=== PATIENT | female | born 1940 | race Caucasian/White ===

== ENCOUNTER 2016-09-09 14:40 | Emergency (ER) | payer OTHER ==
--- NOTE | 2016-09-09 14:52 | PDOC ---
History of Present Illness - General History Source: Patient Exam Limitations: No Limitations - History of Present Illness Initial Comments: 09/09/16 15:17 The patient is a 75 year old female, with a significant past medical history of diverticulitis, who presents to the emergency department with complaints of a headache and neck and shoulder stiffness status post a fall while playing tennis yesterday. The patient reports that when she was playing tennis yesterday she lost her footing and fell, hitting the posterior left side of her head. She denies any loss of consciousness. The patient reports that this morning when she woke up she felt slightly nauseous and had a diffuse headache. She notes that her nausea has since subsided but her headache is still present. She denies any change in her vision and LOC, fever, chills, cough, She denies chest pain, abdominal pain, palpitation, shortness of breath, lightheadedness, and dizziness. She denies vomit, diarrhea and constipation. Patient denies being on any blood thinners. The patient denies any other bodily pain or injury. Allergies: Metronidazole Past surgical history: Appendectomy Social history:She denies alcohol or drug use <Bernie Pryor - Last Filed: 09/09/16 15:17> <Solo Rader - Last Filed: 09/09/16 16:26> - General Chief Complaint: Injury Stated Complaint: fall Time Seen by Provider: 09/09/16 14:44 Past History <Bernie Pryor - Last Filed: 09/09/16 15:17> <Solo Rader - Last Filed: 09/09/16 16:26> - Past Medical History Allergies/Adverse Reactions: Allergies Allergy/AdvReac Type Severity Reaction Status Date / Time metronidazole [From Flagyl] Allergy Verified 09/09/16 14:45 Home Medications: Ambulatory Orders Multivitamins [Tab-A-Vit -] 1 tab PO DAILY 09/09/16 Review of Systems - Review of Systems Able to Perform ROS?: Yes Comments:: 09/09/16 15:17 CONSTITUTIONAL: Absent: fever, no chills, no fatigue EYES: Absent: visual changes ENT: Absent: ear pain, no sore throat CARDIOVASCULAR: Absent: chest pain, no palpitations RESPIRATORY: Absent: cough, no SOB GI:+Nausea Absent: abdominal pain, no vomiting, no constipation, no diarrhea GENITOURINARY: Absent: dysuria, no frequency, no hematuria MUSKULOSKELETAL: +Neck pain, +Shoulder pain Absent: back pain SKIN: Absent: rash NEURO: +headache Absent: <Bernie Pryor - Last Filed: 09/09/16 15:17> *Physical Exam - Vital Signs Last Vital Signs Temp Pulse Resp BP Pulse Ox 98.5 F 65 18 132/78 98 09/09/16 14:40 09/09/16 14:40 09/09/16 14:40 09/09/16 14:40 09/09/16 14:40 - Physical Exam Comments: 09/09/16 15:18 GENERAL: Well developed, well nourished. Awake and alert. No acute distress. HEENT: The funduscopic exam was well visualized and showed normal fundi with sharp margins and venous central pulsations central Normocephalic, atraumatic. PERRLA, EOMI. No conjunctival pallor. Sclera are non- icteric. Moist mucous membranes. Oropharynx is clear. NECK: Supple. Full ROM. No JVD. Carotid pulses 2+ and symmetric, without bruits. No thyromegaly. No lymphadenopathy. CARDIOVASCULAR: Regular rate and rhythm. No murmurs, rubs, or gallops. Distal pulses are 2+ and symmetric. PULMONARY: No evidence of respiratory distress. Lungs clear to auscultation bilaterally. No wheezing, rales or rhonchi. ABDOMINAL: Soft. Non-tender. Non-distended. No rebound or guarding. No organomegaly. Normoactive bowel sounds. NECK: +Mild spasms of the right lateral neck muscles and the trapezius muscle No point tenderness over the vertebral bodies, no deformity. MUSCULOSKELETAL Normal range of motion at all joints. No CVA tenderness. EXTREMITIES: No cyanosis. No clubbing. No edema. No calf tenderness. SKIN: Warm and dry. Normal capillary refill. No rashes. No jaundice. NEUROLOGICAL: Alert, awake, appropriate. Cranial nerves 2-12 intact. No deficits to light touch and temperature in face, upper extremities and lower extremities. No motor deficits in the in face, upper extremities and lower extremities. Normoreflexic in the upper and lower extremities. Normal speech. . Gait is normal without ataxia. PSYCHIATRIC: Cooperative. Good eye contact. Appropriate mood and affect. <Bernie Pryor - Last Filed: 09/09/16 15:17> ED Treatment Course - Medications Given in the ED: ED Medications Discontinued Medications Generic Name Dose Route Start Last Admin Trade Name Louann PRN Reason Stop Dose Admin Acetaminophen 975 mg 09/09/16 15:08 09/09/16 15:13 Tylenol - PO 09/09/16 15:09 Not Given ONCE ONE Acetaminophen 650 mg 09/09/16 15:12 09/09/16 15:13 Tylenol - PO 09/09/16 15:13 650 mg NOW ONE Administration <Bernie Pryor - Last Filed: 09/09/16 15:17> Medical Decision Making - Medical Decision Making 09/09/16 16:26 CT of the head and neck are negative. Headache is improved with medication. Patient remains stable with intact neurological exam and no unsteadiness of gait. Discharge fully ambulatory and in no significant pain or other distress with friend to follow-up <Solo Rader - Last Filed: 09/09/16 16:26> *DC/Admit/Observation/Transfer - Attestations Scribe Attestion: 09/09/16 15:18 Documentation prepared by ANDREA Mcmahon, acting as certified medical records coder for Solo Rader MD. <Bernie Pryor - Last Filed: 09/09/16 15:17> - Discharge Dispostion Admit: No <Solo Rader - Last Filed: 09/09/16 16:26> Diagnosis at time of Disposition: Head injury Qualifiers: Encounter type: initial encounter Qualified Code(s): S09.90XA - Unspecified injury of head, initial encounter - Discharge Dispostion Disposition: HOME Condition at time of disposition: Improved - Referrals Referrals: Mark Catalan MD [Staff Physician] - - Patient Instructions Printed Discharge Instructions: DI for Closed Head Injury, DI for Cervical Muscle Strain Additional Instructions: Rest, Motrin or Advil, avoid excessive visual stimulation, light diet. If symptoms persist, see primary physician, neurologist, or orthopedist for further evaluation and treatment
[2016-09-09] MEDS ORDERED: ACETAMINOPHEN 325 MG TABLET (FP) PO ONE ×2 (15:08→15:12)
[2016-09-09] MEDS ORDERED: ACETAMINOPHEN 325 MG TABLET (FP) ONE (15:10)
[2016-09-09 15:11] VITALS: BP 132/78; PULSE 65; TEMP 98.5; BMI 25.2
[2016-09-09] MEDS ORDERED: IBUPROFEN 600 MG TABLET (FP) PO ONE ×2 (16:24→16:32)
== END 2016-09-09 16:42 | disposition home or self-care (01) ==
LOC: FER 14:40
DX: S09.90XA Unspecified injury of head, initial encounter (principal); W18.39XA Other fall on same level, initial encounter; Y93.73 Activity, racquet and hand sports; Y92.312 Tennis court as the place of occurrence of the external cause
CPT/HCPCS: 70450-TC; 72125-TC; 99282-25

== ENCOUNTER 2018-05-08 14:08 | Emergency (ER) | payer OTHER ==
[2018-05-08 14:13] VITALS: BP 142/72; PULSE 85; TEMP 98; BMI 25.2
--- NOTE | 2018-05-08 14:14 | PDOC ---
Rapid Medical Evaluation Chief Complaint: Nasal Bleeding Medical Evaluation: Allergies Allergy/AdvReac Type Severity Reaction Status Date / Time metronidazole [From Flagyl] Allergy Verified 05/08/18 14:11 05/08/18 14:11 I have performed a brief in-person evaluation of this patient. The patient presents with a chief complaint of: epistaxis x 1 hour, Pertinent physical exam findings: + bleeding from right side worst than left I have ordered the following: CBC, CMP, PT/INR The patient will proceed to the ED for further evaluation. 05/08/18 14:13 Discharge Disposition - Diagnosis Epistaxis - Referrals - Patient Instructions - Post Discharge Activity
--- NOTE | 2018-05-08 15:09 | PDOC ---
History of Present Illness - General Chief Complaint: Nasal Bleeding Stated Complaint: NOSE BLEED Time Seen by Provider: 05/08/18 14:26 History Source: Patient Exam Limitations: No Limitations - History of Present Illness Initial Comments: 05/08/18 15:03 77 yo female pmh of past nose bleeds not on AC presents to the ED with nose bleed for 1 hour. Pt states past nose bleeds have not been this bad, pt called 911 due to excessive blood loss, dizziness and light headedness. Pt admits to it being very dry in her home. denies medical hx of liver disease, denies LOC, changes in vision, profound weakness, CP, SOB, abdominal pain, F/C/N/V. Past History - Past Medical History Allergies/Adverse Reactions: Allergies Allergy/AdvReac Type Severity Reaction Status Date / Time metronidazole [From Flagyl] Allergy Verified 05/08/18 14:11 Home Medications: Ambulatory Orders Multivitamins [Tab-A-Vit -] 1 tab PO DAILY 09/09/16 COPD: No GI Disorders: Yes (DIVERTICULITIS) - Surgical History Abdominal Surgery: Yes Appendectomy: Yes - Immunization History Immunization Up to Date: Yes - Suicide/Smoking/Psychosocial Hx Smoking History: Never smoked 'Breaking Loose' booklet given: 09/09/16 Hx Alcohol Use: No Drug/Substance Use Hx: No Review of Systems - Review of Systems Constitutional: Yes: Weakness. No: Chills, Fever HEENTM: Yes: Other (nose bleed 1 hour) Respiratory: No: Shortness of Breath Cardiac (ROS): No: Chest Pain ABD/GI: No: Constipated, Diarrhea, Nausea, Vomiting : No: Burning, Dysuria, Discharge Musculoskeletal: No: Back Pain Neurological: Yes: Dizziness. No: Headache, Numbness, Paresthesia Hematologic/Lymphatic: Yes: Other (Nose bleed 1 hour with associated lightheadedness) *Physical Exam - Vital Signs Last Vital Signs Temp Pulse Resp BP Pulse Ox 98.0 F 85 18 142/72 98 05/08/18 14:11 05/08/18 14:11 05/08/18 14:11 05/08/18 14:11 05/08/18 14:11 - Physical Exam General Appearance: Yes: Nourished, Appropriately Dressed, Apparent Distress ( hemostasis achieved but pt has dry blood on hands and face ) HEENT: positive: EOMI, MAURILIO, Hearing Grossly Normal, Other (NCAT) Respiratory/Chest: positive: Normal Breath Sounds. negative: Accessory Muscle Use, Rapid RR, Decreased Breath Sounds, Crackles, Rales, Rhonchi, Stridor Cardiovascular: positive: Regular Rhythm, Regular Rate, S1, S2. negative: Edema , JVD, Murmur Vascular Pulses: Dorsalis-Pedis (R): 4+, Doralis-Pedis (L): 4+ Gastrointestinal/Abdominal: positive: Flat, Soft. negative: Pulsatile Mass, Distended, Guarding, Rebound, Tenderness Extremity: positive: Normal Capillary Refill, Normal Inspection Integumentary: positive: Normal Color, Dry, Warm. negative: Cyanotic, Pale, Cold Neurologic: positive: Fully Oriented, Alert, Normal Mood/Affect, Normal Response Moderate Sedation - Procedure Monitoring Vital Signs: Procedure Monitoring Vital Signs Temperature 98.0 F 05/08/18 14:11 Pulse Rate 85 05/08/18 14:11 Respiratory Rate 18 05/08/18 14:11 Blood Pressure 142/72 05/08/18 14:11 O2 Sat by Pulse Oximetry (%) 98 05/08/18 14:11 ED Treatment Course - LABORATORY CBC & Chemistry Diagram: 05/08/18 14:57 05/08/18 14:57 Medical Decision Making - Medical Decision Making 77 yo female presents to the ED after having a nose bleed for 1 hour with associated dizziness and weakness. Admits to house being very dry. Nose bleed stops while in the EDprior to evaluation. Pt sitting up in beed, NAD , AOX3 Vitals WNL CBC shows normal H/H PT/PTT normal CMP unremarkable When pt attempts to go to the bathroom and leans over, the bleed starts again. ice is applied to back of the neck, pressure is held on the nose gauze soaked in saline wit 1cc of lido with epi applied to bilateral nares for 2 min, bleed stops Rhino rocket 4.5 cm applied to left nostril with 1cc of lido with epi and soaked in NS Pt given the number of ENT Dr. Guadalupe, calls while in the ED and told she can come directly to his office for likely cauterization Pt given appropriate DC instructions and proceeds to ENT office for definitive care *DC/Admit/Observation/Transfer Diagnosis at time of Disposition: Epistaxis - Discharge Dispostion Disposition: HOME Condition at time of disposition: Good Decision to Admit order: No - Referrals Referrals: Ekaterina Rojo MD [Primary Care Provider] - Azam Guadalupe MD [Staff Physician] - - Patient Instructions Printed Discharge Instructions: DI for Nosebleed Additional Instructions: Go to Dr. Pereira office right away. He is expecting you. Return to the ER for new or concerning or continued bleeding. Thank you - Post Discharge Activity
[2018-05-08 15:13] LABS: BASO % 0.7 % (0-2.0); EOS % 0.4 % (0-4.5); HEMATOCRIT 42.8 % (32.4-45.2); HEMOGLOBIN 14.8 GM/dL (10.7-15.3); LYMPH % 14.6 % (8-40); MCH 32.5 pg (25.7-33.7); MCHC 34.6 g/dl (32.0-36.0); MEAN CELL VOLUME 93.8 fl (80-96); MEAN PLT VOLUME 8.5 fl (7.5-11.1); MONO % 5.3 % (3.8-10.2); PLATELET COUNT 242 K/MM3 (134-434); RBC 4.56 M/mm3 (3.60-5.2); RDW 12.9 % (11.6-15.6)
[2018-05-08 15:39] LABS: ALBUMIN 3.9 g/dl (3.4-5.0); ALK PHOS 111 U/L (45-117); ANION GAP 7 MMOL/L (8-16); BILIRUBIN,TOTAL 0.4 mg/dL (0.2-1); BLOOD UREA NITROGEN 17 mg/dL (7-18); CALCIUM 8.5 mg/dL (8.5-10.1); CHLORIDE 104 mmol/L (98-107); CO2 26 mmol/L (21-32); CREATININE 0.7 mg/dL (0.55-1.3); GLUCOSE,RANDOM 104 mg/dL (74-106); SGOT/AST 21 U/L (15-37); SGPT/ALT 22 U/L (13-61); SODIUM 138 mmol/L (136-145); TOT PROT 7.1 g/dl (6.4-8.2)
[2018-05-08 15:40] LABS: INR 1.01 (0.83-1.09); PROTHROMBIN TIME (PATIENT) 11.9 SEC (9.7-13.0)
[2018-05-08] MEDS ORDERED: LIDOCAINE HCL 1%, 10 MG/ML (50 mL VIAL) NR ONE (16:30)
[2018-05-08] MEDS ORDERED: OXYMETAZOLINE 0.05% NASAL SOLUTION 15 ML BOTTLE NS ONE (16:30)
[2018-05-08] MEDS ORDERED: LIDOCAINE 1%/EPI 1:100000 (20 ML MULTI DOSE VIAL) ONE (16:32)
--- NOTE | 2018-05-08 17:05 | PDOC ---
Attending Attestation - Resident Resident Name: JinChidi - ED Attending Attestation I have performed the following: I have examined & evaluated the patient, The case was reviewed & discussed with the resident, I agree w/resident's findings & plan, Exceptions are as noted - HPI HPI: 05/08/18 17:06 77yo female with L anterior nose bleed. Denies trauma or picking her nose. States she got up off the couch to use the restroom and her nose just started to bleed. Pt with brb per L nare in the ED. No lightheaded or dizziness. No cp/ sob. No posterior bleeding. - Physicial Exam PE: 05/08/18 17:07 Gen: aaox3, nad heent: PERRL, EOMI, no bleeding down posterior pharynx, L nare with bleeding- bright red, unable to visualize site of bleeding, no bleeding R nare neck: supple heart: +s1s2 reg lung: cta b/l abd: soft, nt/nd +bs ext: no c/c/e, ambulates with a steady gait - Medical Decision Making 05/08/18 17:04 I, Dr. Kimberly Fernandez, DO, attest that this document has been prepared under my direction and personally reviewed by me in its entirety. I further attest, that it accurately reflects all work, treatment, procedures and medical decision -making performed by me. 05/08/18 17:08 77yo female with L anterior epistaxis -pt was not initially bleeding upon arrival in ED, currently is bleeding -pt packed with rapid rhino to L nare -no active bleeding -pt called Dr. Pereira who will see the patient at this time -on repeat eval pt still without bleeding to either nare, no posterior pharynx bleeding -stable for dc to ENT office 05/08/18 17:11 labs reviewed plts stable, inr stable
[2018-05-08] MEDS ORDERED: LIDOCAINE 1%/EPI 1:100000 (50 ML MULTI DOSE VIAL) NR ONE (17:10)
== END 2018-05-08 17:22 | disposition home or self-care (01) ==
LOC: JER 14:08
DX: R04.0 Epistaxis (principal); Z87.19 Personal history of other diseases of the digestive system
CPT/HCPCS: 36415; 80053; 85025; 85610; 86850; 86900; 86901; 99282-25

== ENCOUNTER 2019-01-04 09:46 | Emergency (ER) | payer OTHER ==
[2019-01-04 10:10] VITALS: BP 140/69; PULSE 68; TEMP 98.5; BMI 24.8
--- NOTE | 2019-01-04 10:19 | PDOC ---
History of Present Illness - General Chief Complaint: Headache Stated Complaint: HEADACHE Time Seen by Provider: 01/04/19 10:12 - History of Present Illness Initial Comments: Ms. Hooks is a 78 y/o female with PMH significant for diverticulitis and anxiety, presenting today with headache. Reports that it started yesterday. Describes the pain as bitemporal without any radiation. Reports that she has headaches occasionally. Denies fever, LOC, vision changes. Denies chest pain/ shortness of breath. Denies dysuria/hematuria. Denies abdominal pain. SocHx: lives alone. denies falls. Past History - Past Medical History Allergies/Adverse Reactions: Allergies Allergy/AdvReac Type Severity Reaction Status Date / Time metronidazole [From Flagyl] Allergy Verified 01/04/19 09:48 Home Medications: Ambulatory Orders Multivitamins [Tab-A-Vit -] 1 tab PO DAILY 09/09/16 Alprazolam [Xanax] 0.25 mg PO DAILY PRN 01/04/19 Atorvastatin Ca [Lipitor] 10 mg PO HS 01/04/19 Buspirone HCl [Buspar -] 10 mg PO DAILY 01/04/19 Escitalopram Oxalate [Lexapro -] 5 mg PO DAILY 01/04/19 Meloxicam 15 mg PO DAILY PRN 01/04/19 Metoprolol Succinate [Toprol Xl] 25 mg PO DAILY 01/04/19 COPD: No GI Disorders: Yes (DIVERTICULITIS) HTN: Yes Hypercholesterolemia: Yes Psychiatric Problems: Yes - Surgical History Abdominal Surgery: Yes Appendectomy: Yes (AGE 5) - Immunization History Immunization Up to Date: Yes - Psycho Social/Smoking Cessation Hx Smoking History: Never smoked 'Breaking Loose' booklet given: 09/09/16 Hx Alcohol Use: No Drug/Substance Use Hx: No Review of Systems - Review of Systems Comments:: GENERAL/CONSTITUTIONAL: No fever or chills. No weakness._ HEAD, EYES, EARS, NOSE AND THROAT: No change in vision. No change in hearing. No sore throat._ CARDIOVASCULAR: No chest pain or shortness of breath_ RESPIRATORY: Denies cough, hemoptysis_ GASTROINTESTINAL: No nausea, vomiting, diarrhea or constipation._ GENITOURINARY: No dysuria, frequency, or change in urination._ MUSCULOSKELETAL: No joint or muscle swelling or pain. No neck or back pain._ SKIN: No rash_ NEUROLOGIC: Reports headache. No vertigo, loss of consciousness, or change in strength/sensation._ ENDOCRINE: No increased thirst. No abnormal weight change_ HEMATOLOGIC/LYMPHATIC: No anemia, easy bleeding, or history of blood clots._ ALLERGIC/IMMUNOLOGIC: No hives or skin allergy._ *Physical Exam - Vital Signs Last Vital Signs Temp Pulse Resp BP Pulse Ox 98.5 F 68 15 140/69 100 01/04/19 09:47 01/04/19 09:47 01/04/19 09:47 01/04/19 09:47 01/04/19 09:47 - Physical Exam Comments: GENERAL: Awake, alert, and oriented to person and place, in no acute distress. Mild memory loss. HEAD: No signs of trauma, normocephalic, atraumatic _ EYES: PERRLA, EOMI, sclera anicteric, conjunctiva clear_ ENT: Hearing grossly normal, nares patent, oropharynx clear without exudates. No uvular deviation. Moist mucosa_ NECK: Normal ROM, supple, no lymphadenopathy, JVD, or masses_ LUNGS: No distress, speaks in full sentences, clear to auscultation bilaterally _ HEART: Regular rate and rhythm, normal S1 and S2, no murmurs appreciated, peripheral pulses normal and equal bilaterally._ ABDOMEN: Soft, nontender, normoactive bowel sounds. No guarding, no rebound. No masses_ EXTREMITIES: Normal inspection, Normal range of motion, no edema. No clubbing or cyanosis_ NEUROLOGICAL: Cranial nerves II through XII grossly intact. Normal speech, normal gait, no focal sensorimotor deficits. Cerebellar testing negative. No ataxia. 5/5 strength/sensation bilateral upper/lower extremities. SKIN: Warm, Dry, normal turgor, no rashes or lesions noted_ ED Treatment Course - LABORATORY CBC & Chemistry Diagram: 01/04/19 10:45 01/04/19 10:45 Medical Decision Making - Medical Decision Making 78F presenting with bitemporal headache. No other symptoms. DDx includes tension headache vs other acute intracranial pathology. -CBC, CMP -CT head -UA, UCx 01/04/19 12:25 CT head shows no acute intracranial pathology and no interval changes from 2017. Labs reviewed and wnl. UA does not show signs of UTI. Pt reassessed. pain at top of head as improved, but continues to have bitemporal pain after given IV tylenol and fluids. -Toradol IV 30 mg 01/04/19 13:15 Pt reassessed. Pain has moderately improved. -Reglan IV 10 mg 01/04/19 13:36 D/w son (Kishan Hooks) who states that patient was diagnosed with vascular dementia and is followed by Dr. Zaragoza at [facility]. Reports that she has been having headaches with increasing frequency. Son states that he has been spending more time with patient at her home. D/w [facility] motel front desk clerk physician, who states that she was noted to have mild vascular dementia at her last visit and is being followed by neuropsych at [facility]. Given that she has neuro, neuropsych, primary care follow up and social/ familial support, plan to d/c patient home to f/u PCP and neurology. Discharge - Discharge Information Problems reviewed: Yes Clinical Impression/Diagnosis: Headache Qualifiers: Headache type: unspecified Headache chronicity pattern: unspecified pattern Intractability: not intractable Qualified Code(s): R51 - Headache Condition: Good Disposition: HOME - Admission No - Follow up/Referral Referrals: Ekaterina Rojo MD [Primary Care Provider] - Steve Zaragoza [Non Staff, Medical] - - Patient Discharge Instructions Additional Instructions: Please take Advil as needed for your headache. Please make a follow up appointment with your primary care physician and a neurologist (contact info provided here). If you experience any new, worsening, or concerning symptoms, including severe headache, fever, chills, neck pain, changes in vision, lethargy, or any other concerns, please return to the emergency department. - Post Discharge Activity
[2019-01-04] MEDS ORDERED: SODIUM CHLORIDE 0.9% 500 ML INFUS.BAG IV ONE (10:58)
[2019-01-04] MEDS ORDERED: ACETAMINOPHEN 1000 MG/100 ML VIAL (NON FORMULARY) IVPB ONE (10:58)
[2019-01-04 11:07] LABS: BASO % 0.5 % (0-2.0); EOS % 0.9 % (0-4.5); HEMATOCRIT 42.9 % (32.4-45.2); HEMOGLOBIN 14.4 GM/dl (10.7-15.3); LYMPH % 16.8 % (8-40); MCH 31.7 pg (25.7-33.7); MCHC 33.5 g/dl (32.0-36.0); MEAN CELL VOLUME 94.5 fl (80-96); MEAN PLT VOLUME 8.7 fl (7.5-11.1); MONO % 6.1 % (3.8-10.2); NEUT % 75.7 % (42.8-82.8); PLATELET COUNT 284 K/MM3 (134-434); RBC 4.54 M/mm3 (3.60-5.2); RDW 12.6 % (11.6-15.6); WHITE BLOOD COUNT 7.5 K/mm3 (4.0-10.8)
[2019-01-04] MEDS ORDERED: ACETAMINOPHEN INJECTION 100 ML IVPB ONE (11:08)
[2019-01-04 11:16] LABS: BILIRUBIN,TOTAL 0.5 mg/dl (0.2-1); CREATININE 0.7 mg/dl (0.55-1.3); POTASSIUM 4.5 mmol/L (3.5-5.1); TOT PROT 6.8 g/dl (6.4-8.2)
[2019-01-04 11:46] LABS: EPITHELIAL CELLS RARE /hpf
--- NOTE | 2019-01-04 11:55 | PDOC ---
Attending Attestation - Resident Resident Name: Karen Chilelhan - ED Attending Attestation I have performed the following: I have examined & evaluated the patient, The case was reviewed & discussed with the resident, I agree w/resident's findings & plan, Exceptions are as noted - HPI HPI: 01/04/19 11:52 78-year-old female history of anxiety here today complaining of bitemporal headaches. Patient states that she has has headaches in the past although never this bad describing a bitemporal headache which started yesterday she believes she awoke with a headache in the a.m. has been persistent since that time thinks she may have taken ibuprofen the day prior for her pain but had no relief. Previously headaches would improve with Motrin or Aleve. Denies any nausea or vomiting no associated focal weakness no photophobia no fevers chills no cough no trauma patient states that she lives alone and states overall was not feeling well so she felt like she should get checked out in the ED today. States she takes Xanax but has not taken it recently - Physicial Exam PE: 01/04/19 11:53 Awake alert no acute distress no temporal artery tenderness. Facial nerves are intact and faces are symmetric. There is no meningismus lungs are clear bilaterally heart is regular without murmurs rubs or gallops abdomen is soft and nontender extremities are warm and well-perfused. Patient does appear to have a baseline resting tremor her strength is 5 out of 5 all 4 extremities she is alert and oriented x2 and is disoriented to the year - Medical Decision Making 01/04/19 11:53 78-year-old female history of anxiety here today complaining of headache. Differential includes tension headache, anemia, lecture light abnormality, onset of viral syndrome intracranial pathology. Plan CT head basic labs IV hydration IV Tylenol given her for her pain. Patient does appear to have some remote memory impairment when asked questions about her medications and the date. however is very high functioning states she does have a Dr. Qiu that she can follow-up with as an outpatient. 01/04/19 14:[address] negative labs normal. headache improved with toradol tylenol and reglan. would like to go home. pt was seemingly with some short term memory loss in department. could not remember year, and forgetting details of conversations had in ED. called pt son with permission states she has had diagnosis of vascular dementia. is being followed by a nueropsychatrist and a nuerologist. he has been keeping closer tabs on her and will check in with her. pcp called to leave message for folloupw. [place] to home.
[2019-01-04] MEDS ORDERED: KETOROLAC TROMETHAMINE 30 MG/1 ML VIAL IVPUSH ONE (12:31)
[2019-01-04] MEDS ORDERED: KETOROLAC TROMETHAMINE 30 MG/1 ML VIAL ONE (12:35)
[2019-01-04] MEDS ORDERED: METOCLOPRAMIDE HCL INJECTION 10 MG/2 ML VIAL IVPUSH ONE (13:15)
[2019-01-04] MEDS ORDERED: METOCLOPRAMIDE HCL INJECTION 10 MG/2 ML VIAL ONE (13:21)
== END 2019-01-04 14:09 | disposition home or self-care (01) ==
LOC: FER 09:46
PROC: 3E0333Z Introduction of Anti-inflammatory into Peripheral Vein, Percutaneous Approach (ICD-10-PCS; principal; 2019-01-04)
PROC: 3E033NZ Introduction of Analgesics, Hypnotics, Sedatives into Peripheral Vein, Percutaneous Approach (ICD-10-PCS; 2019-01-04)
PROC: 3E0337Z Introduction of Electrolytic and Water Balance Substance into Peripheral Vein, Percutaneous Approach (ICD-10-PCS; 2019-01-04)
DX: R51 Headache (principal); F41.9 Anxiety disorder, unspecified; I10 Essential (primary) hypertension; E78.00 Pure hypercholesterolemia, unspecified; Z88.8 Allergy status to other drugs, medicaments and biological substances
CPT/HCPCS: 36415; 70450-TC; 80053; 81003; 81015; 85025; 87086; 99283-25; J0131

== ENCOUNTER 2019-04-25 17:38 | Emergency (ER) | payer OTHER ==
[2019-04-25 18:09] VITALS: TEMP 97.5; BMI 23.4
--- NOTE | 2019-04-25 18:10 | PDOC ---
Documentation entered by Xochitl Grajeda SCRIBE, acting as scribe for Cecilia Simmons MD. Cecilia Simmons MD: This documentation has been prepared by the theodoreibeNicci Adrianna, SCRIBE, under my direction and personally reviewed by me in its entirety. I confirm that the documentation accurately reflects all work, treatment, procedures, and medical decision making performed by me. History of Present Illness - General Chief Complaint: CVA/TIA Stated Complaint: ?STROKE Time Seen by Provider: 04/25/19 17:55 - History of Present Illness Initial Comments: The patient is a 78 year old female, with a significant PMH of TIAs (last in October), vascular dementia, HTN, HLD, anxiety, and diverticulitis, who presents to the ED for evaluation of right sided paresthesia. Son at bedside assists in providing history, as the patient is a poor historian 2/2 vascular dementia. Patient notes that she woke up in her normal state of health this morning. During the afternoon, she called her son since she felt funny, dizzy, and lightheaded. Son notes that the patient was complaining of right-sided numbness , at the right side of her face, her RUE into her fingers, and down her RLE to her toes. When the son went to see her, he notes that her right eye and cheek looked off like they were spasming. Patient notes the numbness had resolved in the ED, but endorses some right knee pain. Her only complaint in the ED is that she feels tired. Denies PAUL, fever, chills, chest pain, SOB, changes in vision, blurred vision. Allergies: Metronidazole Surgical History: appendectomy Social History: Former smoker (quit 30 years ago). No toxic habits. PCP: Dr. Rojo Convalescent Sitter: Dr. Platt Past History - Past Medical History Allergies/Adverse Reactions: Allergies Allergy/AdvReac Type Severity Reaction Status Date / Time metronidazole [From Flagyl] Allergy Unknown Verified 04/25/19 17:55 Home Medications: Ambulatory Orders Multivitamins [Tab-A-Vit -] 1 tab PO DAILY 09/09/16 Alprazolam [Xanax] 0.25 mg PO PRN PRN 01/04/19 Atorvastatin Ca [Lipitor] 10 mg PO HS 01/04/19 Meloxicam 15 mg PO PRN PRN 01/04/19 Aspirin [ASA -] 81 mg PO DAILY 04/25/19 COPD: No GI Disorders: Yes (DIVERTICULITIS) HTN: Yes Hypercholesterolemia: Yes Psychiatric Problems: Yes Other medical history: MINI STROKE, VASCULAR DEMENTIA - Surgical History Abdominal Surgery: Yes Appendectomy: Yes (AGE 5) - Immunization History Immunization Up to Date: Yes - Psycho Social/Smoking Cessation Hx Smoking History: Former smoker Have you smoked in the past 12 months: No If you are a former smoker, when did you quit?: 1980S Information on smoking cessation initiated: No 'Breaking Loose' booklet given: 09/09/16 Hx Alcohol Use: No Drug/Substance Use Hx: No Review of Systems - Review of Systems Comments:: GENERAL/CONSTITUTIONAL: +Tired. No fever or chills. No weakness. HEAD, EYES, EARS, NOSE AND THROAT: No change in vision. No ear pain or discharge. No sore throat. CARDIOVASCULAR: No chest pain or shortness of breath. RESPIRATORY: No cough, wheezing, or hemoptysis. GASTROINTESTINAL: No nausea, vomiting, diarrhea or constipation. GENITOURINARY: No dysuria, frequency, or change in urination. MUSCULOSKELETAL: +RIght knee pain. No joint or muscle swelling. No neck or back pain. SKIN: No rash NEUROLOGIC: +Poor memory 2/2 vascular dementia. +RIght sided numbness, now resolved. +DIzziness and lightheadedness, now resolved. No headache or loss of consciousness. ENDOCRINE: No increased thirst. No abnormal weight change. HEMATOLOGIC/LYMPHATIC: No anemia, easy bleeding, or history of blood clots. ALLERGIC/IMMUNOLOGIC: No hives or skin allergy. *Physical Exam - Vital Signs Last Vital Signs Temp Pulse Resp BP Pulse Ox 97.5 F L 75 20 122/67 100 04/25/19 17:39 04/25/19 17:39 04/25/19 17:39 04/25/19 17:39 04/25/19 17:39 - Physical Exam GENERAL: Awake, alert, and fully oriented, in no acute distress HEAD: No signs of trauma EYES: PERRLA, EOMI, sclera anicteric, conjunctiva clear ENT: Auricles normal inspection, hearing grossly normal, nares patent, oropharynx clear without exudates. Moist mucosa NECK: Normal ROM, supple, no lymphadenopathy, JVD, or masses LUNGS: Breath sounds equal, clear to auscultation bilaterally. No wheezes, and no crackles HEART: Regular rate and rhythm, normal S1 and S2, no murmurs, rubs or gallops ABDOMEN: Soft, nontender, normoactive bowel sounds. No guarding, no rebound. No masses EXTREMITIES: Normal range of motion, no edema. No clubbing or cyanosis. No cords, erythema, or tenderness NEUROLOGICAL: +Memory impairment (at baseline per son at bedside). Cranial nerves II through XII grossly intact. Normal speech. Motor and sensation intact SKIN: Warm, Dry, normal turgor, no rashes or lesions noted NIH Stroke Scale - Last Known Well Date/Time & Onset Date Last Known Well: 04/25/19 - Initial Evaluation Level of consciousness: Alert Ask patient the month and their age: Answers both correctly Ask patient to open & close eyes; make fist and let go: Obeys both correctly Best gaze (horizontal eye movement): Normal Visual field testing: No visual field loss Facial paresis (Show teeth/raise eyebrows/close eyes tight): Normal symmetrical movement Motor Function: Left Arm: Normal Motor Function: Right Arm: Normal (extends arm 90 (or 45) degrees for 10 seconds without drift Motor Function: Left Leg: Normal (extends leg 30 degrees for 5 seconds without drift) Motor Function: Right Leg: Normal (extends leg 30 degrees for 5 seconds without drift) Limb Ataxia: No ataxia Sensory(Use pinprick test arms,legs,trunk,face/side to side): Normal Best language (Describe picture, name items, read sentences): No Aphasia Dysarthria (read several words): Normal articulation Extinction and Inattention: No abnormality - Total Score NIH Stroke Scale Score: 0 Critical Care Time/MDM Note - Medical Decision Making Note: EXAM: CT HEAD WITHOUT IV CONTRAST FINDINGS:Small area of hyperintensity in the left frontal subcortical white matter is concerning for petechial hemorrhage. Recommend brain MRI to further characterize. Otherwise, mild diffuse parenchymal atrophy of the remaining brain with preservation of the peralta-white differentiation. There is no acute intracranial hemorrhage, mass effect or midline shift. No abnormal intra-axial or extra-axial fluid collection is seen. The periventricular white matter is unremarkable. The ventricles and basilar cisterns are maintained.The bones of the calvarium and imaged skull base demonstrate no acute abnormality. The imaged paranasal sinuses and mastoid air cells : Unremarkable. Reported By: Rich Valencia MD 04/25/2019 18:[address] results d/w patient and son at bedside. They requested [facility] for transfer. [facility] auto-accepted. 04/25/19 18:52 Case d/w Dr. Christina, [facility] neurosurgeon production support analyst, patient accepted. Requested keppra 1g IV. SBP goal <140. Discharge - Discharge Information Problems reviewed: No Clinical Impression/Diagnosis: Intraparenchymal hemorrhage of brain Condition: Guarded Disposition: TRANSFER ACUTE CARE/OTHER HOSP - Admission No - Follow up/Referral Referrals: Ekaterina Rojo MD [Primary Care Provider] - - Patient Discharge Instructions - Post Discharge Activity - Transfer to Acute Care Facility Receiving Facility Name: [facility]
[2019-04-25 18:29] LABS: BASO % 0.6 % (0-2.0); HEMATOCRIT 40.6 % (32.4-45.2); HEMOGLOBIN 13.2 GM/dl (10.7-15.3); LYMPH % 24.8 % (8-40); MCH 30.7 pg (25.7-33.7); MCHC 32.4 g/dl (32.0-36.0); MEAN CELL VOLUME 94.8 fl (80-96); MEAN PLT VOLUME 9.2 fl (7.5-11.1); MONO % 7.5 % (3.8-10.2); NEUT % 65.1 % (42.8-82.8); PLATELET COUNT 259 K/MM3 (134-434); RBC 4.28 M/mm3 (3.60-5.2); RDW 12.6 % (11.6-15.6); WHITE BLOOD COUNT 6.9 K/mm3 (4.0-10.8)
[2019-04-25 18:36] LABS: ALBUMIN 3.8 g/dl (3.4-5.0); BILIRUBIN,TOTAL 0.4 mg/dl (0.2-1); CALCIUM 8.6 mg/dl (8.5-10); CREATININE 0.7 mg/dl (0.55-1.3); POTASSIUM 4.1 mmol/L (3.5-5.1); TOT PROT 6.6 g/dl (6.4-8.2)
[2019-04-25 18:42] LABS: CHOLESTEROL 176 mg/dl (50-200); HDL CHOLESTEROL 53 mg/dl (40-60); LDL CHOLESTEROL (ONLY DFH) 73 mg/dl (5-100); TRIGLYCERIDES 249 mg/dl (0-150)
[2019-04-25] MEDS ORDERED: levETIRAcetam 500 MG/5 ML INJECTION VIAL IVPB ONE ×2 (18:50→18:56)
[2019-04-25 19:09] VITALS: BP 130/76
[2019-04-25 19:11] VITALS: PULSE 71
[2019-04-25 19:49] LABS: ACTIVATED PTT 40.8 SECONDS (25.2-36.5)
[2019-04-25 19:54] LABS: INR 1.08 (0.82-1.09); PROTHROMBIN TIME (PATIENT) 12.1 SEC (10.2-13.0)
--- NOTE | 2019-04-27 10:08 | EKG ---
Test Reason : Blood Pressure : / mmHG Vent. Rate : 065 BPM Atrial Rate : 065 BPM P-R Int : 142 ms QRS Dur : 076 ms QT Int : 400 ms P-R-T Axes : 059 045 034 degrees QTc Int : 416 ms NORMAL SINUS RHYTHM NONSPECIFIC T WAVE ABNORMALITY ABNORMAL ECG NO PREVIOUS ECGS AVAILABLE Confirmed by Kendra Prado ([id number]) on 04/27/2019 10:07:55 AM Referred By: Confirmed By:Kendra Prado
== END 2019-04-25 19:19 | disposition short-term general hospital (02) ==
LOC: SUPCPDRO 17:38 → FER 17:38
PROC: 3E033GC Introduction of Other Therapeutic Substance into Peripheral Vein, Percutaneous Approach (ICD-10-PCS; principal; 2019-04-25)
DX: R58 Hemorrhage, not elsewhere classified (principal); I61.8 Other nontraumatic intracerebral hemorrhage; I10 Essential (primary) hypertension; Z88.8 Allergy status to other drugs, medicaments and biological substances; F99 Mental disorder, not otherwise specified; Z86.73 Personal history of transient ischemic attack (TIA), and cerebral infarction without residual deficits; F01.50 Vascular dementia, unspecified severity, without behavioral disturbance, psychotic disturbance, mood disturbance, and anxiety; K57.92 Diverticulitis of intestine, part unspecified, without perforation or abscess without bleeding; Z87.891 Personal history of nicotine dependence; E78.00 Pure hypercholesterolemia, unspecified
CPT/HCPCS: 36415; 70450-TC; 80053; 80061; 82550; 84484; 85025; 85610; 85730; 93005; 99285-25

== ENCOUNTER 2019-10-25 14:50 | Emergency (ER) | payer OTHER ==
[2019-10-25 14:56] VITALS: BP 92/45; PULSE 61; TEMP 98; BMI 24.4
[2019-10-25] MEDS ORDERED: ACETAMINOPHEN 500 MG TABLET (FP) PO ONE (15:12)
[2019-10-25] MEDS ORDERED: ACETAMINOPHEN 500 MG TABLET (FP) ONE (15:14)
--- NOTE | 2019-10-25 15:32 | PDOC ---
Documentation entered by Chandu Deng SCRIBE, acting as scribe for Nav Wiggins MD. Nav Wiggins MD: This documentation has been prepared by the [place] Angel, SCRIBE, under my direction and personally reviewed by me in its entirety. I confirm that the documentation accurately reflects all work, treatment, procedures, and medical decision making performed by me. History of Present Illness - General Chief Complaint: Injury Stated Complaint: FELL OUT OF BED LAST WEEK RT ARM PAIN Time Seen by Provider: 10/25/19 14:52 History Source: Patient, Family (Son) Exam Limitations: No Limitations - History of Present Illness Initial Comments: 10/25/19 15:18 The patient is a 79 year old female with a significant past medical history of TIAs (October 2018), vascular dementia, HTN, HLD, anxiety, and diverticulitis who presents to the ED accompanied by her son with right upper extremity pain s/p fall 1 week ago. The son states while getting out of bed the patient fell on a mat he placed for her, landing on her right arm. No headstrike or LOC witnessed by son. He states giving her Ibuprofen 2-3 times a day which gives temporary relief but notes the pain progressively worsening over the past couple of days. The patient denies head trauma, headaches, neck pain or back pain. Past History - Medical History Allergies/Adverse Reactions: Allergies Allergy/AdvReac Type Severity Reaction Status Date / Time metronidazole [From Flagyl] Allergy Unknown Verified 07/13/19 20:43 Home Medications: Ambulatory Orders Atorvastatin Ca [Lipitor] 80 mg PO HS 07/13/19 Bupropion HCl [Bupropion HCl ER] 100 mg PO DAILY 07/13/19 Clonazepam 0.5 mg PO BID 07/13/19 Donepezil HCl 5 mg PO DAILY 07/13/19 COPD: No GI Disorders: Yes (DIVERTICULITIS) HTN: Yes Hypercholesterolemia: Yes Psychiatric Problems: Yes - Surgical History Abdominal Surgery: Yes Appendectomy: Yes (AGE 5) - Reproductive History Is Patient Now?: No - Immunization History Immunization Up to Date: Yes - Psycho-Social/Smoking History Smoking History: Never smoked Have you smoked in the past 12 months: No If you are a former smoker, when did you quit?: 1980S Information on smoking cessation initiated: No 'Breaking Loose' booklet given: 09/09/16 - Substance Abuse Hx (Audit-C & DAST Scrn) How often the patient has a drink containing alcohol: Never Score: In Men: 4 or > Positive; In Women: 3 or > Positive: 0 Screen Result (Pos requires Nsg. Audit-10AR): Negative In the last yr the pt used illegal drug/Rx for NonMed reason: No Score: Yes response is considered Positive: 0 Screen Result (Positive result requires Nsg. DAST-10): Negative Review of Systems - Review of Systems Comments:: 10/25/19 15:18 GENERAL/CONSTITUTIONAL: No fever or chills. No weakness. HEAD, EYES, EARS, NOSE AND THROAT: No change in vision. No ear pain or discharge. No sore throat. CARDIOVASCULAR: No chest pain, no shortness of breath, no loss of consciousness RESPIRATORY: No cough, wheezing, or hemoptysis. GASTROINTESTINAL: No nausea, vomiting, diarrhea or constipation. GENITOURINARY: No dysuria, frequency, or change in urination. MUSCULOSKELETAL: +RUE pain. No neck or back pain. SKIN: No rash NEUROLOGIC: No vertigo, no change in strength/sensation. ENDOCRINE: No increased thirst. No abnormal weight change. HEMATOLOGIC/LYMPHATIC: No anemia, easy bleeding, or history of blood clots. ALLERGIC/IMMUNOLOGIC: No hives or skin allergy. *Physical Exam - Vital Signs Last Vital Signs Temp Pulse Resp BP Pulse Ox 98.0 F 61 20 92/45 L 97 10/25/19 14:51 10/25/19 14:51 10/25/19 14:51 10/25/19 14:51 10/25/19 14:51 - Physical Exam 10/25/19 15:43 "GENERAL: Awake, alert, and fully oriented, in no acute distress. HEAD: No signs of trauma EYES: PERRLA, EOMI, sclera anicteric, conjunctiva clear ENT: Auricles normal inspection, hearing grossly normal, nares patent, oropharynx clear without exudates. Moist mucosa NECK: Nontender, no stepoffs, Normal ROM, supple, no lymphadenopathy, JVD, or masses LUNGS: Breath sounds equal, clear to auscultation bilaterally. No wheezes, and no crackles HEART: Regular rate and rhythm, normal S1 and S2, no murmurs, rubs or gallops ABDOMEN: normoactive bowel sounds. No guarding, no rebound. No masses EXTREMITIES: +TTP over R scapula, R humerus, Normal range of motion, no edema. No clubbing or cyanosis. No cords, erythema, or tenderness NEUROLOGICAL: Cranial nerves II through XII intact. 5/5 strength and sensation in all extremities, Normal speech, normal gait, normal cerebellar function SKIN: Warm, Dry, normal turgor, no rashes or lesions noted. Medical Decision Making - Medical Decision Making 10/25/19 15:44 79 F with fall out of bed 1 week ago. Now complaining of R shoulder pain. - XR R scapula, R shoulder -Tylenol 10/25/19 16:26 X rays negative for fx Pt placed in shoulder immobilizer. Will DC with ortho f/u. Pt is well appearing, with normal vitals. Clinically stable for DC at this time. I discussed the physical exam findings, ancillary test results and final diagnoses with the patients family. I answered all of their questions. The family was satisfied with the care received and felt comfortable with the discharge plan and treatment plan. They agree to follow up with the primary care physician within 24-72 hours. Discharge - Discharge Information Problems reviewed: Yes Clinical Impression/Diagnosis: Fall, Shoulder pain, Arm pain Disposition: HOME - Follow up/Referral Referrals: Robbie Chan DO [Staff Physician] - - Patient Discharge Instructions Patient Printed Discharge Instructions: DI for Arm Pain Additional Instructions: Your X rays did not show any fractures. However, this does not rule out all injuries, including rotator cuff tears or ligamentous injuries. You must follow up with an orthopedic surgeon for further evaluation of your arm pain. Keep your arm immobilized in the sling until you are able to see the orthopedist. If you experience worsening pain, swelling, numbness, or any other concerning symptoms, return to the ER immediately. - Post Discharge Activity
== END 2019-10-25 16:42 | disposition home or self-care (01) ==
LOC: FER 14:50
DX: M79.601 Pain in right arm (principal); M25.511 Pain in right shoulder
CPT/HCPCS: 73010-TC-FY; 73030-TC-RT-FY; 99284-25